=== PATIENT | male | born 1980 | race Caucasian/White ===

== ENCOUNTER 2018-02-24 19:58 | Emergency (ER) | payer OTHER ==
[~2018-02-24] VITALS: Ht 165.1 cm; Wt 73.5 kg
[2018-02-24 20:27] VITALS: Ht 165.1 cm; Wt 73.5 kg
[2018-02-24 20:59] LABS: BASOPHIL % 1.7 % (0-2); PLATELET COUNT 341 x10^3mcL (130-400); RED CELL DISTRIBUTION WIDTH 13.2 % (11.5-14.5)
[2018-02-24 21:54] LABS: ALBUMIN 4.6 g/dL (3.4-5.0); ALKALINE PHOSPHATASE 76 U/L (46-116); ALT/SGPT 42 U/L (16-63); AST/SGOT 15 U/L (15-37); BILIRUBIN TOTAL 0.79 mg/dL (0.20-1.00); CALCIUM 9.6 mg/dL (8.5-10.1); CARBON DIOXIDE 23.3 mmol/L (21-32); CHLORIDE SERUM 102 mmol/L (98-107); CREATININE SERUM 1.1 mg/dL (0.7-1.3); GFR1 > 60 mL/min; GLUCOSE SERUM 106 mg/dL (74-106); LIPASE 111 IU/L (73-393); SODIUM SERUM 141 mmol/L (136-145)
[2018-02-24 21:55] LABS: microscopic required? YES; urine erythrocyte NEGATIVE (NEGATIVE)
[2018-02-24 22:04] LABS: POTASSIUM SERUM 2.9 mmol/L (3.5-5.1); TOTAL PROTEIN, SERUM 8.3 g/dL (6.4-8.2)
[2018-02-24 22:16] LABS: AMPHETAMINE QUAL UR POSITIVE (See below)
[2018-02-24 23:11] VITALS: BP 125/66
== END 2018-02-24 23:11 | disposition home or self-care (01) ==
LOC: ED 19:58
PROVIDERS: Emergency Medicine
DX: R10.9 Unspecified abdominal pain (principal); R51 Headache; R11.0 Nausea; Z90.89 Acquired absence of other organs
CPT/HCPCS: J1885; J2060; J2405; J7030

== ENCOUNTER 2018-12-18 18:38 | Emergency (ER) | payer OTHER ==
[~2018-12-18] VITALS: Ht 170.2 cm; Wt 86.2 kg
[2018-12-18 18:45] VITALS: Ht 170.2 cm; Wt 86.2 kg
[2018-12-18 21:51] LABS: BASOPHIL % 0.8 % (0-2); PLATELET COUNT 362 x10^3mcL (130-400); RED CELL DISTRIBUTION WIDTH 13.2 % (11.5-14.5)
[2018-12-18 22:04] LABS: CALCIUM 9.1 mg/dL (8.5-10.1); CARBON DIOXIDE 29.4 mmol/L (21-32); CHLORIDE SERUM 104 mmol/L (98-107); CREATININE SERUM 0.9 mg/dL (0.7-1.3); GFR1 > 60 mL/min; GLUCOSE SERUM 97 mg/dL (74-106); SODIUM SERUM 142 mmol/L (136-145)
[2018-12-18 22:11] LABS: ALBUMIN 4.1 g/dL (3.4-5.0); ALKALINE PHOSPHATASE 84 U/L (46-116); ALT/SGPT 41 U/L (16-63); AST/SGOT 14 U/L (15-37); BILIRUBIN TOTAL 0.18 mg/dL (0.20-1.00); HDL CHOLESTEROL 38 mg/dL (40-60); LIPASE 192 IU/L (73-393); TOTAL PROTEIN, SERUM 7.3 g/dL (6.4-8.2); TRIGLYCERIDES 82 mg/dL (<150)
[2018-12-18 22:12] LABS: CHOLESTEROL 134 mg/dL (<200); CHOLESTEROL/HDL RATIO 3.5
[2018-12-18 22:30] LABS: T3 TOTAL 1.26 ng/mL
[2018-12-18 22:34] LABS: FREE T4 0.95 ng/dL (0.76-1.46); FREE THYROXINE INDEX 2.3 ug/dL (1.4-4.5); T4(THYROXINE) 6.3 ug/dL (4.7-13.3)
[2018-12-18 22:52] LABS: microscopic required? NO
[2018-12-18 23:02] LABS: urine erythrocyte NEGATIVE (NEGATIVE)
[2018-12-18 23:11] LABS: AMPHETAMINE QUAL UR NONE DETECTED (See below)
[2018-12-19] VITALS: BP 157/88
== END 2018-12-19 | disposition home or self-care (01) ==
LOC: ED 18:38
PROVIDERS: Specialist
DX: R07.89 Other chest pain (principal); F15.20 Other stimulant dependence, uncomplicated; Z90.89 Acquired absence of other organs
CPT/HCPCS: 36415; 83880; 84439; J1885; Q0092